=== PATIENT | male | born 1965 ===

== ENCOUNTER 2018-04-16 11:33 | Emergency (ER) | payer OTHER ==
[~2018-04-16] VITALS: Ht 175.3 cm; Wt 121.6 kg
[2018-04-16] MEDS ORDERED: COUMADIN3 MG (12:08)
[2018-04-16] MEDS ORDERED: LIPITOR20 MG (12:09)
[2018-04-16] MEDS ORDERED: SYNTHROID100 MCG (12:11)
== END 2018-04-16 16:34 | disposition home or self-care (01) ==
LOC: ER 11:33
DX: M79.675 Pain in left toe(s) (principal)